=== PATIENT | male | born 1970 | race Caucasian/White ===

== ENCOUNTER 2025-07-31 18:29 | Emergency (ER) | payer MEDICAID, SELFPAY ==
[2025-07-31 18:34] VITALS: BP 142/61; PULSE 80; RESP 18; TEMP 36.1; O2SAT 97
[2025-07-31 18:36] VITALS: BP 126/64; PULSE 80; RESP 20; TEMP 36.9; O2SAT 95
[2025-07-31 19:02] VITALS: BMI 42.3
[2025-07-31 19:35] VITALS: BP 107/81; PULSE 84; RESP 18; TEMP 36.8; O2SAT 95
[2025-07-31] MEDS: HYDROcodone Bitartrate/Apap 5/325 Tablet PO (19:39)
--- NOTE | 2025-07-31 19:41 | US_ITS ---
PROCEDURE: Right VENOUS DUPLEX IMAG/LIMITED/UNI 07/31/2025 REASON FOR EXAM: Redness in the right leg. M 54 y/o TECHNIQUE: Procedure Code: Right USVDUL Modality: US Procedure: VENOUS DUPLEX IMAG/LIMITED/UNI COMPARISON: None. FINDINGS: Partial filling defect within the gastrocnemius vein which is incompressible consistent with deep vein thrombosis. The common femoral, femoral and popliteal veins are patent and compressible. No soft tissue edema. US/Venous Duplex Imag/Limited/Uni IMPRESSION: Deep vein thrombosis in the right gastrocnemius vein. Reading Location: [facility]
[2025-07-31 20:46] VITALS: BP 118/79; PULSE 74; RESP 18; TEMP 36.6; O2SAT 97
[2025-07-31] MEDS: APIXABAN 5 MG TABLET 10 MG PO (20:50)
--- NOTE | 2025-07-31 22:33 | ED.VIS.LOWEX ---
HPI History of Present Illness Chief Complaint: Lower Extremity Injury Narrative Narrative: Patient is a 54-year-old male presenting to the emergency department for left lower extremity pain. Patient states few years ago he had a knee replacement on the right side at [facility]. States that since then he has had issues with joint infection and has had multiple joint wash outs. He reports his last one was about 1.5 months ago. States that his doctor stopped prescribing him opiates for the pain about a week ago. He reports for the past 4 days he has had new pain along his gtz and lateral calf. He states he went to [place] [facility] last night and they did not have ultrasound capability to rule out a DVT but did get a CT of the chest to rule out blood clot which was negative. Reports he is still having pain today and came here for evaluation to rule out DVT. He denies history of DVT. States that he is currently being treated for joint infection through a left upper extremity PICC line with vancomycin and Rocephin. States that he gets labs done weekly at home. Denies any fever, chills, nausea or vomiting. Feels well otherwise. [facility] Medical History Hypertension Home Medications ?Medication ?Instructions ?Recorded ?Last Taken ?Type apixaban 5 mg (74 tabs) tablets in 5 mg PO BID #74 tabs 07/31/25 Unknown Rx a dose pack (Eliquis DVT-PE Treat 30D Start) aspirin 81 mg tablet 162 mg PO QDAY 07/31/25 Unknown History carvedilol 25 mg tablet 25 mg PO BID 07/31/25 Unknown History cyclobenzaprine 10 mg tablet 10 mg PO TID 07/31/25 Unknown History sertraline 100 mg tablet (Zoloft) 100 mg PO DAILY 07/31/25 Unknown History simvastatin 20 mg tablet 20 mg PO DAILY 07/31/25 Unknown History trazodone 100 mg tablet 100 mg PO QHS 07/31/25 Unknown History Allergy/AdvReac Type Severity Reaction Status Date / Time No Known Allergies Allergy Verified 07/31/25 18:32 Surgical History Hx of total knee replacement Social History Smoking Status: Current some day smoker tobacco type: cigarettes ROS ROS ED ROS Narrative see HPI EXAM Physical Exam Narrative Exam Narrative: Vital signs: Reviewed General: Alert and oriented x 3. No acute distress HEENT: Head is normocephalic and atraumatic, sinuses nontender, pupils equal round and reactive. Nares are patent. Oropharynx and throat exams normal. Neck: Supple without lymphadenopathy nontender Cardiovascular: Regular rate and rhythm, no murmurs. No rubs or gallops. Normal S1 and S2 Respiratory: Clear to auscultation bilaterally. No wheezes, rales, rhonchi Abdominal: Soft and nontender. Normal bowel sounds. No guarding or rebound. Nonsurgical abdomen Extremities: There is a vertical incision to the right anterior knee with Steri-Strips in place. There is some serosanguineous drainage from the wound. There is erythema and warmth of the knee with moderate swelling. There is no tracking of the erythema down or up the leg. There is tenderness to palpation of the lateral calf, no tenderness to palpation of the medial calf. DP and PT pulses intact. Sensation intact. ROM at the knee decreased due to swelling and pain. Neurological: Cranial nerves II through XII are grossly intact. Normal strength and sensation. Normal cerebellar function The rest of the physical exam is unremarkable Const Vital Signs: 07/31/25 18:34 07/31/25 18:36 07/31/25 19:35 Temperature 96.9 F L 98.4 F 98.2 F Temperature Source Temporal Oral Oral Pulse Rate 80 80 84 Respiratory Rate 18 20 H 18 Blood Pressure 142/61 H 126/64 H 107/81 H Blood Pressure Mean 88 84 89 Pulse Ox 97 95 95 Oxygen Delivery Method Room Air Room Air Room Air 07/31/25 20:46 Temperature 98 F Temperature Source Pulse Rate 74 Respiratory Rate 18 Blood Pressure 118/79 Blood Pressure Mean 92 Pulse Ox 97 Oxygen Delivery Method MDM MDM MDM Narrative Medical decision making narrative: Patient is a 54-year-old male presenting to the emergency department for right leg pain. Patient was seen and examined. Vitals are stable. Patient resting in bed comfortably no acute distress. Patient given Percocet for pain control. Ultrasound of the right leg was ordered and shows a DVT in the right gastrocnemius vein. Patient was given first dose of Eliquis here. He denies any chest pain or shortness of breath. States he had a CT done yesterday that was negative for any clot. He was given a prescription for Eliquis for home. Instructed to take 2 tablets in the morning and at night for 7 days and then to take 1 tablet in the morning and at night thereafter. Instructed to follow-up with primary care doctor as soon as possible and to return to the ED with any new or worsening symptoms. Instructed to take Tylenol and Motrin at home for pain control. Instructed to continue his PICC antibiotics for his joint infection at home as he has been. He has no signs of sepsis on history and physical. No tachycardia, no fever and has weekly labs drawn at home. He is stable for discharge home. Patient discharged from the Emergency Department. I do not feel that the patient's evaluation reveals any acute reason for admission at this time. I instructed them to either follow-up with their primary care physician or promptly return to the Emergency Department for reevaluation should symptoms worsen or new symptoms develop. I explained what symptoms would indicate the need to return to the emergency department. Shared decision making was used. The patient voiced understanding of the treatment plan and is agreeable with it. Clinical impression DVT of the right gastrocnemius vein Radiography Diagnostic Testing: Clinical Impression(s) from Imaging Studies Venous Duplex 07/31/25 19:41 IMPRESSION: Deep vein thrombosis in the right gastrocnemius vein. Reading Location: [facility] Discharge Plan Triage Chief Complaint: Lower Extremity Injury ED Provider: Angeles Sarabia Dx/Rx/DC Orders Clinical Impression: DVT (deep venous thrombosis) Instructions: DVT Dc Prescriptions: New Eliquis DVT-PE Treat 30D Start 5 mg (74 tabs) tablets,dose pack 5 mg PO BID Qty: 74 0RF Rx Instructions: Take 2 tablets twice daily for 7 days. Take 1 tablet twice daily thereafter. No Action carvedilol 25 mg tablet 25 mg PO BID Rx Instructions: must administer with a meal/food aspirin 81 mg tablet 162 mg PO QDAY sertraline [Zoloft] 100 mg tablet 100 mg PO DAILY trazodone 100 mg tablet 100 mg PO QHS simvastatin 20 mg tablet 20 mg PO DAILY cyclobenzaprine 10 mg tablet 10 mg PO TID Primary Care Provider: Care Physician,No Primary Referrals: Montse Navarrete MD [Med Staff - [employer]] - 3-5 Days Care Physician,No Primary [Primary Care Provider] - Activity Restrictions/Additional Instructions: For the eliquis take 2 tablets in the morning and at night for 7 days. Then begin taking only 1 tablet in the morning and the night and follow-up with your primary care doctor soon as possible. Return to the ED with any chest pain or shortness of breath or worsening pain. Your evaluation in the Emergency Department did not reveal any acute reason for admission. However, I want to emphasize that you may be early in the course of a disease process or illness even if it is not present. For this reason you should follow-up within 24 hours for reevaluation with either your primary care physician or if necessary back here in the Emergency Department. You should return to the Emergency Department immediately if your symptoms worsen or new symptoms develop. Print Language: German Disposition Disposition: Home, Self Care Discharge Date/Time: 07/31/25 20:53
== END 2025-07-31 20:53 | disposition home or self-care (01) ==
PROVIDERS: Emergency Provider Student in an Organized Health Care Education/Training Program; Visit Provider Student in an Organized Health Care Education/Training Program
DX: I82.461 Acute embolism and thrombosis of right calf muscular vein (principal); M79.605 Pain in left leg; Z96.651 Presence of right artificial knee joint; I10 Essential (primary) hypertension; Z79.82 Long term (current) use of aspirin; Z79.899 Other long term (current) drug therapy; F17.210 Nicotine dependence, cigarettes, uncomplicated
CPT/HCPCS: 93971; 99285